=== PATIENT | male | born 1965 | race Caucasian/White ===

== ENCOUNTER 2022-09-13 07:32 | Outpatient (CLI) | payer OTHER ==
[2022-09-13 07:27] VITALS: BMI 29.0
[2022-09-13] MEDS ORDERED: FLU VACC QS2022-23(6MOS UP)/PF 60 MCG/0.5 ML SYRINGE IM ONE (08:00)
[2022-09-13] MEDS ORDERED: EPINEPHrine 1 MG/ML AMP ONE (08:09)
[2022-09-13] MEDS ORDERED: Sodium Bicarbonate 2.5 MEQ/5 ML VIAL ONE (08:09)
[2022-09-13] MEDS ORDERED: Lidocaine 1% w/Epinephrine 1:200K 30 ML VIAL ONE (08:10)
[2022-09-13] MEDS ORDERED: Lidocaine 1% PF 5 ML VIAL ONE ×2 (08:12→08:13)
[2022-09-13 08:18] VITALS: BP 178/105; TEMP 97.3
== END 2022-09-13 09:30 | disposition home or self-care (01) ==
LOC: CSHRAD 07:32
PROVIDERS: ATTEND Orthopaedic Surgery
DX: M24.812 Other specific joint derangements of left shoulder, not elsewhere classified (principal); M75.112 Incomplete rotator cuff tear or rupture of left shoulder, not specified as traumatic
CPT/HCPCS: 23350; J0171

== ENCOUNTER 2022-09-27 07:48 | Outpatient (CLI) | payer OTHER | END 2022-09-27 07:49 | disposition home or self-care (01) | LOC: CSHMRI 07:48 | PROVIDERS: ATTEND Orthopaedic Surgery | DX: M48.02 Spinal stenosis, cervical region (principal); M50.023 Cervical disc disorder at C6-C7 level with myelopathy | CPT/HCPCS: 72141 ==